=== PATIENT | male | born 1975 | race Caucasian/White ===

== ENCOUNTER 2020-08-02 07:08 | Emergency (ER) | payer OTHER ==
[~2020-08-02] VITALS: Ht 185.4 cm; Wt 117.9 kg
[2020-08-02] MEDS ORDERED: ALLOPURINOL300 MG PO (07:44)
== END 2020-08-02 10:57 | disposition home or self-care (01) ==
LOC: ED 07:08
DX: M48.061 Spinal stenosis, lumbar region without neurogenic claudication (principal); M48.04 Spinal stenosis, thoracic region; Z88.1 Allergy status to other antibiotic agents
CPT/HCPCS: 70450; 72125; 72128; 72131; 80053; 84443; 85025; 99284-25

== ENCOUNTER 2024-01-18 20:56 | Emergency (ER) | payer OTHER ==
[~2024-01-18] VITALS: Ht 185.4 cm; Wt 110.0 kg
[~2024-01-18 20:56] MED LIST: ALLOPURINOL300 MG PO
[2024-01-19] MEDS ORDERED: AMOX TR-K CLV1 EAC1 PO (00:10)
[2024-01-19] MEDS ORDERED: AMOXICILLIN/CLAVULANATE K 875 MG HOME.PACK PO ONE (00:15)
[2024-01-19] MEDS ORDERED: DIPHTH,PERTUSS(ACELL),TET VAC 0.5 ML SYRINGE IM ONE (00:15)
[2024-01-19 00:36] VITALS: BP 145/89
== END 2024-01-19 00:36 | disposition home or self-care (01) ==
LOC: ED 20:56
DX: S61.250A Open bite of right index finger without damage to nail, initial encounter (principal); W55.01XA Bitten by cat, initial encounter; L08.9 Local infection of the skin and subcutaneous tissue, unspecified; Z23 Encounter for immunization; Z88.6 Allergy status to analgesic agent; Z79.899 Other long term (current) drug therapy
CPT/HCPCS: 90471; 90715; 99283-25